=== PATIENT | male | born 1955 | race Caucasian/White ===

== ENCOUNTER 2021-07-03 16:07 | Emergency (ER) | payer MEDICARE, OTHER ==
[~2021-07-03 16:07] MED LIST: ACETAMINOPHEN500 M1 PO; ATIVAN0.5 MG PO; B COMPLEX # 11 EACH PO; B COMPLEX1 EACH PO; CERTAGEN1 EACH PO; DICLOFENAC SODI75 MG PO; MELOXICAM15 MG PO; MIRALAX17 GM PO; MOBIC7.5 MG PO; NORCO 5-325 TA1 EACH PO; OMEPRAZOLE 20MG20 MG PO; ONDANSETRON ODT8 MG PO; PEPCID AC20 MG PO; PERCOCET 5-3251 EACH PO; PERCOCET 7.5/321 TAB PO; PREDNISONE5 MG PO; PRILOSEC20 MG PO; SYMBICORT 80-10.2 GM INH; TESSALON PERLE100 MG PO; TYLENOL #31 EACH PO; VENTOLIN HFA IN18 GM INH; VITAMIN B COMP1 EAC2 PO; VOLTAREN **OUT75 MG PO; ZESTRIL40 MG PO
== END 2021-07-03 18:24 | disposition home or self-care (01) ==
LOC: FER 16:07
DX: S93.402A Sprain of unspecified ligament of left ankle, initial encounter (principal); S80.212A Abrasion, left knee, initial encounter; S90.812A Abrasion, left foot, initial encounter; I10 Essential (primary) hypertension; J45.909 Unspecified asthma, uncomplicated; Z79.899 Other long term (current) drug therapy; V23.4XXA Motorcycle driver injured in collision with car, pick-up truck or van in traffic accident, initial encounter; Y92.410 Unspecified street and highway as the place of occurrence of the external cause
CPT/HCPCS: 73560; 73610; 73630

== ENCOUNTER 2021-09-17 15:20 | Emergency (ER) | payer MEDICARE, OTHER ==
[2021-09-17 16:15] LABS: BASOPHIL 1.1 % (0-2); EOSINOPHIL 9.5 % (0-7); HGB 11.9 g/dl (13.2-18.0); LYMPHOCYTE 23.3 % (15-48); MCH 36.2 pg (25.0-31.0); MCV 103.3 fL (78.0-100.0); MONOCYTE 11.4 % (0-12); MPV 9.2 fL (6.0-9.5); NEUTROPHIL 54.3 % (41-80); NRBC 0; PLT 111 K/uL (150-400); RBC 3.29 M/uL (4.70-6.00); RDW 13.5 % (11.5-14.0); WBC 4.6 K/uL (4.0-10.5)
[2021-09-17 16:18] LABS: INR 1.27 (0.9-1.2); PROTHROMBIN TIME 15.2 SECONDS (11.8-13.4)
[2021-09-17 16:19] LABS: PTT 35.3 SECONDS (24.4-34.7)
[2021-09-17 16:22] LABS: BILIRUBIN NEGATIVE (NEGATIVE); BLOOD NEGATIVE Ery/uL (NEGATIVE); CLARITY CLEAR (CLEAR); COLOR YELLOW (YELLOW); GLUCOSE (U) NORMAL (NORMAL); LEUKOCYTES NEGATIVE Leu/uL (NEGATIVE); NITRITE NEGATIVE (NEGATIVE); PROTEIN NEGATIVE (NEGATIVE); SPECIFIC GRAVITY 1.015 (1.001-1.030)
[2021-09-17 16:41] LABS: LACTIC ACID 1.4 mmol/L (0.4-1.9)
[2021-09-17 16:42] LABS: BILIRUBIN - TOTAL 1.4 mg/dL (0.2-1.0); BUN/CREAT RATIO (CALC) 15.8 RATIO; CREATININE 1.01 mg/dL (0.67-1.17); GLOBULIN (CALCULATION) 5.3 g/dL; POTASSIUM 4.4 mmol/L (3.5-5.1); TOTAL PROTEIN 8.3 g/dL (6.4-8.2)
[2021-09-17 16:53] LABS: CORONAVIRUS 2019 SARS-COV-2 NEGATIVE (NEGATIVE); INFLUENZA A NAA NEGATIVE (NEGATIVE)
[2021-09-17] MEDS ORDERED: LACTULOSE10 G/15 ML PO (18:18)
== END 2021-09-17 18:19 | disposition home or self-care (01) ==
LOC: FER 15:20
PROVIDERS: Nurse Practitioner Family
DX: K74.60 Unspecified cirrhosis of liver (principal); K76.6 Portal hypertension; K57.30 Diverticulosis of large intestine without perforation or abscess without bleeding; I10 Essential (primary) hypertension; Z20.822 Contact with and (suspected) exposure to COVID-19
CPT/HCPCS: 36415; 70450; 80053; 81003; 82140; 82728; 83605; 84145; 85025; 85610; 85730; 87040; J7030; Q9967; U0002